=== PATIENT | male | born 1955 | race Caucasian/White ===

== ENCOUNTER 2019-02-15 07:32 | Emergency (ER) | payer MEDICARE ==
--- NOTE | 2019-02-15 07:38 | ED Physician Documentation ---
General Adult - HISTORIAN Historian: patient - HPI Stated Complaint: right ankle lower leg pain Chief Complaint: Foot Injury Onset: days ago (1) Timing: still present Severity: moderate Further Comments: yes (He states that he fell and twisted on a step and his foot and ankle on the right side is swollen and he has pain. He states he took one ibuprofen last night. He is able to walk on the foot with his shoe. He has not tried ICE He has no loss of sensation. Denies pain on movement but pain to touch on lateral side of the ankle) Last known Well Code/Unknown Code: Unknown - ROS CONST: no problems EYES/ENT: none MS/SKIN/LYMPH: none - PAST HX Past History: none, other (issues with sleep ) Allergies/Adverse Reactions: Allergies Allergy/AdvReac Type Severity Reaction Status Date / Time Penicillins Allergy Verified 02/15/19 08:01 Home Medications: Ambulatory Orders Medication Instructions Recorded Lisinopril [Zestril] 40 mg PO QDAY 02/15/19 Metoprolol Succinate [Toprol Xl] 50 mg PO DAILY 02/15/19 - SOCIAL HX Smoking History: non-smoker Alcohol Use: none Drug Use: none - FAMILY HX Family History: No - REVIEWED ASSESSMENTS Nursing Assessment Reviewed: Yes Vitals Reviewed: Yes Progress - Progress Progress: 0853: discussion of case with Dr Rodriguez and he says have pt put on boot and follow up with Harsh Mosqueda SAL[employer] AND EVENTS COORDINATOR at clinic [facility] ED Results Lab/Radiology - Radiology Radiology Impressions: Examination: Plain film right foot History: RIGHT LATERAL ANKLE AND FOOT PAIN AND SWELLING POST FALL LAST NIGHT. Findings: 3 views of the right foot demonstrates normal cortical margins. No fracture or dislocation. Mild 1st metatarsophalangeal degenerative changes. No soft tissue swelling. No joint effusion. Impression: No acute osseous process. Electronically signed on February 15, 2019 8:21:20 AM CDT by: Hector Rutherford Examination: Plain film right ankle History: RIGHT LATERAL ANKLE AND FOOT PAIN AND SWELLING POST FALL LAST NIGHT. Findings: 3 views of the right ankle demonstrates oblique lucency involving the distal fibula. Distal tibia appears to be intact. Talar dome is intact. Lateral soft tissue swelling. No joint effusion. Impression: Oblique distal fibular fracture. Lateral soft tissue swelling. Electronically signed on February 15, 2019 8:26:17 AM CDT by: Hector Rutherford General Adult Physical Exam - PHYSICAL EXAM GENERAL APPEARANCE: no distress EENT: eye inspection normal, ENT inspection normal, no signs of dehydration NECK: normal inspection RESPIRATORY: no resp distress, chest non-tender, breath sounds normal CVS: reg rate & rhythm, heart sounds normal, equal pulses, no murmur ABDOMEN: soft, normal bowel sounds, no distension BACK: normal inspection, no CVA tenderness SKIN: warm/dry EXTREMITIES: edema (right lateral ankle/ Pulses+ Cap refill + and FROM - with pain with ankle movement. He is able to bear weight. ) NEURO: oriented X3 Discharge Clincal Impression: Fracture of distal fibula Qualifiers: Encounter type: initial encounter Fracture type: closed Fracture morphology: other fracture Laterality: right Qualified Code(s): S82.831A - Other fracture of upper and lower end of right fibula, initial encounter for closed fracture Referrals: Primary Doctor,No [Primary Care Provider] - 2 Days Comments: 1. Walking Boot 2. Tramadol 50 mg take 1 by mouth every 8 hours as needed for pain 3. Elevate 4. Call [phone] and make appt for this week with Harsh Bates [employer] AND EVENTS COORDINATOR 5. Follow up with PCP in 2 days for sleeping concerns and chronic pain 6. Return to ER for any increasing concerns Condition: Stable Disposition: 01 HOME, SELF-CARE Decision to Admit: NO Date of Decison to Admit: 02/15/19 Decision Time: 09:00
--- NOTE | 2019-02-15 08:23 | Diagnostic Imaging Report ---
CURT MAZARIEGOS [facility] [address] [facility] [address] [place], [place]. [address] Report Submission Date: February 15, 2019 8:21:20 AM CDT Patient Study Name: MARQUEZ FERREIRA Date: February 15, 2019 7:59:33 AM CDT Modality Type: DX Gender: M Description: FOOT 3 VIEWS OR MORE : 51 Institution: [facility] Physician: CURT MAZARIEGOS Examination: Plain film right foot History: RIGHT LATERAL ANKLE AND FOOT PAIN AND SWELLING POST FALL LAST NIGHT. Findings: 3 views of the right foot demonstrates normal cortical margins. No fracture or dislocation. Mild 1st metatarsophalangeal degenerative changes. No soft tissue swelling. No joint effusion. Impression: No acute osseous process. Electronically signed on February 15, 2019 8:21:20 AM CDT by: Hector WOLF
--- NOTE | 2019-02-15 08:30 | Diagnostic Imaging Report ---
CURT MAZARIEGOS [facility] [address] [facility] [address] [place], [place]. [address] Report Submission Date: February 15, 2019 8:26:17 AM CDT Patient Study Name: MARQUEZ FERREIRA Date: February 15, 2019 7:59:33 AM CDT Modality Type: DX Gender: M Description: ANKLE 3 VIEWS OR MORE : 51 Institution: [facility] Physician: CURT MAZARIEGOS Examination: Plain film right ankle History: RIGHT LATERAL ANKLE AND FOOT PAIN AND SWELLING POST FALL LAST NIGHT. Findings: 3 views of the right ankle demonstrates oblique lucency involving the distal fibula. Distal tibia appears to be intact. Talar dome is intact. Lateral soft tissue swelling. No joint effusion. Impression: Oblique distal fibular fracture. Lateral soft tissue swelling. Electronically signed on February 15, 2019 8:26:17 AM CDT by: Hector WOLF
[2019-02-15] MEDS ORDERED: traMADol HCL 50 MG TABLET PO ONE (08:55)
[2019-02-15 09:19] VITALS: BP 130/81
== END 2019-02-15 09:09 | disposition home or self-care (01) ==
LOC: ED 07:32
DX: S82.831A Other fracture of upper and lower end of right fibula, initial encounter for closed fracture (principal); W10.9XXA Fall (on) (from) unspecified stairs and steps, initial encounter; Y93.01 Activity, walking, marching and hiking; Y92.9 Unspecified place or not applicable
CPT/HCPCS: 29515; 73610; 73630; 99283; 99284